=== PATIENT | female | born 1955 | race Caucasian/White ===

== ENCOUNTER → 2017-07-06 | Outpatient (CLI) | payer MEDICARE, OTHER | END | disposition home or self-care (01) | LOC: PCVCCLINIC 14:28 | PROVIDERS: ATTEND Internal Medicine Cardiovascular Disease | DX: I38 Endocarditis, valve unspecified (principal); E78.5 Hyperlipidemia, unspecified; G89.29 Other chronic pain; I34.0 Nonrheumatic mitral (valve) insufficiency; I36.1 Nonrheumatic tricuspid (valve) insufficiency; I44.5 Left posterior fascicular block; I49.1 Atrial premature depolarization; Z90.49 Acquired absence of other specified parts of digestive tract; Z90.710 Acquired absence of both cervix and uterus; Z87.891 Personal history of nicotine dependence; Z79.899 Other long term (current) drug therapy | CPT/HCPCS: 80061; 93005; G0463 ==

== ENCOUNTER → 2018-07-18 | Outpatient (CLI) | payer MEDICARE, OTHER ==
--- NOTE | 2018-07-18 17:05 | PCVCIMAG ---
APPROVED REPORT Study performed: 07/18/2018 14:02:34 EXAM: Comprehensive 2D, Doppler, and color-flow Echocardiogram Patient Location: Echo lab Status: routine BSA: 1.76 HR: 67 bpmBP: 118/80 mmHg Rhythm: NSR Other Information Study Quality: Good Risk Factors: Cardiac Risk Factors: Hyperlipidemia Indications Aortic Valve Disease Mitral Regurgitation, Aortic regurgitation, Hyperlipidemia 2D Dimensions LVEF(%): 51.09 (>50%) IVSd: 8.34 (7-11mm)LVOT Diam: 20.94 (18-24mm) LVDd: 48.70 mm PWd: 8.19 (7-11mm)Ascending Ao: 34.05 (22-36mm) LVDs: 35.99 (25-40mm) Left Atrium: 33.67 (27-40mm) Aortic Root: 29.56 mm LV Single Plane 4CH: 62.65 % LV Single Plane 2CH: 61.35 %Douglas's LVEF: 62.00 % Biplane EF: 62.0 % Volumes Left Atrial Volume (Systole) Single Plane 4CH: 32.83 mLSingle Plane 2CH: 29.14 mL LA ESV Index: 18.00 mL/m2 Aortic Valve AoV Peak Antelmo.: 1.36 m/s AO Peak Gr.: 7.40 mmHgLVOT Max P.36 mmHg LVOT Max V: 1.04 m/s LUPE Vmax: 2.64 cm2 AI Vmax: 4.32 m/s AI Love: 2.63 m/s2 AI PHT: 476.36 ms Mitral Valve E/A Ratio: 0.8 MV Decel. Time: 233.69 ms MV E Max Antelmo.: 0.86 m/s MV A Antelmo.: 1.03 m/s TDI E/Lateral E': 7.17E/Medial E': 12.29 Medial E' Antelmo.: 0.07 m/s Lateral E' Antelmo.: 0.12 m/s Pulmonary Valve PV Peak Gr.: 1.45 mmHg Pulmonary Vein P Vein S: 0.56 m/sP Vein A: 0.38 m/s P Vein D: 0.49 m/sP Vein A Dur.: 83.0 msec P Vein S/D Ratio: 1.14 Tricuspid Valve TR Peak Antelmo.: 2.79 m/s TR Peak Gr.: 31.08 mmHg Left Ventricle The left ventricle is normal size. There is normal LV segmental wall motion. There is normal left ventricular wall thickness. Left ventricular systolic function is normal. The left ventricular ejection fraction is within the normal range. LVEF is 65%. The left ventricular diastolic function is normal. Right Ventricle The right ventricle is normal size. The right ventricular systolic function is normal. Atria The left atrium size is normal. The right atrium size is normal. Aortic Valve The aortic valve is normal in structure. Mild aortic regurgitation. There is no aortic valvular stenosis. Mitral Valve The mitral valve is normal in structure. Mild mitral regurgitation. No evidence of mitral valve stenosis. Tricuspid Valve The tricuspid valve is normal in structure. Trace to mild tricuspid regurgitation. Pulmonary artery pressure is 39mmhg. Pulmonic Valve The pulmonary valve is normal in structure. Trace pulmonic regurgitation. Great Vessels The aortic root is normal in size. IVC is normal in size and collapses with >50% inspiration Pericardium There is no pericardial effusion. <Conclusion> There is normal left ventricular wall thickness. LVEF is 65%. The left ventricular diastolic function is normal. The right ventricle is normal size. The left atrium size is normal. Mild aortic regurgitation. Mild mitral regurgitation. Trace to mild tricuspid regurgitation. Pulmonary artery pressure is 39mmhg. The aortic root is normal in size. There is no pericardial effusion.
== END | disposition home or self-care (01) ==
LOC: PCVCIMAG 13:59
PROVIDERS: ATTEND Internal Medicine Cardiovascular Disease
DX: I08.0 Rheumatic disorders of both mitral and aortic valves (principal); G89.29 Other chronic pain; B18.2 Chronic viral hepatitis C; E78.5 Hyperlipidemia, unspecified; Z87.891 Personal history of nicotine dependence
CPT/HCPCS: 80061; 93005; 93306; G0463

== ENCOUNTER → 2019-07-25 | Outpatient (CLI) | payer MEDICARE, OTHER | END | disposition home or self-care (01) | LOC: PCVCCLINIC 13:00 | PROVIDERS: ATTEND Internal Medicine Cardiovascular Disease | DX: I38 Endocarditis, valve unspecified (principal); E78.5 Hyperlipidemia, unspecified; G89.29 Other chronic pain; I10 Essential (primary) hypertension; B18.2 Chronic viral hepatitis C; Z90.49 Acquired absence of other specified parts of digestive tract; Z90.710 Acquired absence of both cervix and uterus; Z87.891 Personal history of nicotine dependence; Z79.899 Other long term (current) drug therapy | CPT/HCPCS: 36415; 80061; 93005; G0463 ==